=== PATIENT | female | born 1935 | race American Indian/Alaskan Native ===

== ENCOUNTER 2018-08-06 15:29 | Emergency (ER) | payer MEDICARE, MEDICAID ==
[2018-08-06 15:35] VITALS: BMI 28.1
[2018-08-06 15:41] VITALS: BP 145/83; PULSE 81; RESP 17; TEMP 98.3; O2SAT 95
--- NOTE | 2018-08-06 16:11 | C.PDOC ---
History Of Present Illness 82 y/o female with PMH of HTN presents to the ED c/o right ankle pain x 2 days. Pain is over lateral right ankle, made worse with movement. Pt can bear weight. Associated redness and mild swelling. Denies trauma but describes a blister in the area from rubbing clothing. Pt was on her feet all day yesterday cooking, which has caused some bilateral pedal edema. Denies fevers, chills, difficulty walking, numbness, paresthsias, knee pain, headache, vomiting. Chief Complaint (Nursing): Lower Extremity Problem/Injury History Per: Patient History/Exam Limitations: no limitations Onset/Duration Of Symptoms: Days Past Medical History Reviewed: Historical Data, Nursing Documentation, Vital Signs Vital Signs: Last Vital Signs Temp 98.3 F 08/06/18 15:37 Pulse 81 08/06/18 15:37 Resp 17 08/06/18 15:37 BP 145/83 08/06/18 15:37 Pulse Ox 95 08/06/18 15:37 - Medical History PMH: HTN Denies: Diabetes, Hepatitis, HIV, Seizures, Sexually Transmitted Disease Surgical History: Cholecystectomy Family History: States: Unknown Family Hx - Social History Hx Alcohol Use: No Hx Substance Use: No - Immunization History Hx Tetanus Toxoid Vaccination: No Hx Influenza Vaccination: No Hx Pneumococcal Vaccination: No Review Of Systems Except As Marked, All Systems Reviewed And Found Negative. Constitutional: Negative for: Fever, Chills Eyes: Negative for: Vision Change ENT: Negative for: Nose Congestion, Throat Pain Cardiovascular: Negative for: Chest Pain, Palpitations Respiratory: Negative for: Cough, Shortness of Breath Gastrointestinal: Negative for: Nausea, Vomiting, Abdominal Pain, Diarrhea Genitourinary: Negative for: Dysuria, Frequency Musculoskeletal: Positive for: Leg Pain (right ankle), Foot Pain (right foot). Negative for: Neck Pain, Back Pain Skin: Positive for: Other (redness and swelling right ankle). Negative for: Rash Neurological: Negative for: Weakness, Numbness, Change in Speech, Confusion, Altered Mental Status, Headache, Dizziness Physical Exam - Physical Exam Appears: Well, No Acute Distress Skin: Warm, Dry, Other (Red, tender, with increased warmth over lateral ankle. Redness [id number] with associated tenderness superior to, and over right ankle lateral malleolus. open blister (1.5cmx 2cm) superior to lateral malleolus, no drainage.) Head: Atraumatic, Normacephalic Eye(s): bilateral: Normal Inspection, PERRL, EOMI Nose: Normal Oral Mucosa: Moist Tongue: Normal Appearing Lips: Normal Appearing Throat: Normal Neck: Normal, Normal ROM Cardiovascular: Rhythm Regular Respiratory: Normal Breath Sounds Back: Normal Inspection Extremity: Normal ROM, Tenderness (right lateral ankle), Pedal Edema (bilateral pedal edema (baseline), mildly worse on right side), No Calf Tenderness, Capillary Refill (<2s), No Deformity Extremity: Left: Normal Color And Temperature (right lateral ankle Red, tender, with increased warmth. Small open blister over lateral ankle. ), Right: Painful To Bear Weight, Bilateral: Atraumatic, Normal ROM Pulses: Left Radial: Normal, Right Radial: Normal, Left Dorsalis Pedis: Normal, Right Dorsalis Pedis: Normal Neurological/Psych: Oriented x3, Normal Speech, Normal Cognition, Normal Cranial Nerves, Normal Motor, Normal Sensation Gait: Steady ED Course And Treatment O2 Sat by Pulse Oximetry: 95 Medical Decision Making Medical Decision Making: Initial Plan: -Tylenol -Right ankle xray Right Ankle Xray: FINDINGS: BONES: No acute displaced fracture. Calcaneal enthesophyte/heel spur. JOINTS: No dislocation. SOFT TISSUES: Soft tissue swelling. No evidence of radiopaque foreign body. OTHER FINDINGS: None. IMPRESSION: Marked soft tissue swelling greatest laterally. No acute displaced fracture, dislocation, or significant joint effusion identified. If symptoms persist or if there is clinical concern, x-ray follow-up in 7-10 days should be considered. Impression: Cellulitis Plan: -Keflex (first dose here) x 7 days -Followup with PMD within 2 days -Followup with orthopedics for persistent pain -Return to ER if symptoms worsen Disposition - Disposition Referrals: [facility] at [facility] [Outside] Yoav Morales III, MD [Staff Provider] - Disposition: HOME/ ROUTINE Disposition Time: 16:47 Condition: IMPROVED Additional Instructions: Take antibiotic every 8 hours for 7 days Rest and elevate the extremity Followup with primary within 2 days Followup with orthopedic doctor for persistent pain Return to ER if symptoms worsen Prescriptions: Cephalexin [Keflex] 500 mg PO Q8H 7 Days #21 capsule Instructions: Cellulitis (Skin Infection), Adult (DC) Forms: [employer] (Lithuanian) - Clinical Impression Clinical Impression: Cellulitis
--- NOTE | 2018-08-06 16:46 | RAD ---
PROCEDURE: Right Ankle Radiographs. HISTORY: right ankle pain, swelling COMPARISON: None available. FINDINGS: BONES: No acute displaced fracture. Calcaneal enthesophyte/heel spur. JOINTS: No dislocation. SOFT TISSUES: Soft tissue swelling. No evidence of radiopaque foreign body. OTHER FINDINGS: None. IMPRESSION: Marked soft tissue swelling greatest laterally. No acute displaced fracture, dislocation, or significant joint effusion identified. If symptoms persist or if there is clinical concern, x-ray follow-up in 7-10 days should be considered.
== END 2018-08-06 16:55 | disposition home or self-care (01) ==
LOC: C.ER 15:29
DX: L03.115 Cellulitis of right lower limb (principal)